=== PATIENT | male | born 1995 | race Caucasian/White ===

== ENCOUNTER 2019-08-26 14:43 | Emergency (ER) | payer OTHER ==
[2019-08-26 15:00] VITALS: BP 119/71
[2019-08-26 16:03] LABS: Influenza B Molecular POSITIVE (Negative)
--- NOTE | 2019-08-26 16:05 | ED ---
Respiratory - HPI Summary HPI Summary: 24 yr old male with the complaint of coughing, onset of symptoms five days ago. He initially had runny nose, muscle aches and then coughing and fever. He feels tired as well. His symptoms now are moderate. No SOB. - History of Current Complaint Chief Complaint: UCRespiratory Stated Complaint: CHEST CONGESTION Time Seen by Provider: 08/26/19 15:45 Pain Intensity: 0 - Allergy/Home Medications Allergies/Adverse Reactions: Allergies Allergy/AdvReac Type Severity Reaction Status Date / Time No Known Allergies Allergy Verified 08/26/19 14:53 Home Medications: Home Medications Antidepressant Med 1 tab DAILY 08/26/19 [History Confirmed 08/26/19] PMH/Surg Hx/FS Hx/Imm Hx - Surgical History Surgery Procedure, Year, and Place: LEFT ankle-screws placed 2012 Infectious Disease History: No Infectious Disease History: Denies: Traveled Outside the [place] in Last 30 Days - Family History Known Family History: Positive: None - Social History Alcohol Use: Weekly Substance Use Type: Reports: None Smoking Status (MU): Heavy Every Day Tobacco Smoker Type: eCigarettes Amount Used/How Often: once a week e-cigs Review of Systems Constitutional: Negative Positive: Cough Positive: Myalgia All Other Systems Reviewed And Are Negative: Yes Physical Exam Triage Information Reviewed: Yes Vital Signs On Initial Exam: Initial Vitals Temp Pulse Resp BP Pulse Ox 97.7 F 89 16 119/71 97 08/26/19 14:55 08/26/19 14:55 08/26/19 14:55 08/26/19 14:55 08/26/19 14:55 Vital Signs Reviewed: Yes Appearance: Positive: Well-Appearing, No Pain Distress Skin: Positive: Warm, Skin Color Reflects Adequate Perfusion Head/Face: Positive: Normal Head/Face Inspection Eyes: Positive: EOMI ENT: Positive: Normal ENT inspection, Nasal congestion, Nasal drainage Neck: Positive: Nontender Respiratory/Lung Sounds: Positive: Clear to Auscultation, Breath Sounds Present Cardiovascular: Positive: RRR. Negative: Murmur Abdomen Description: Positive: Nontender. Negative: Distended Musculoskeletal: Positive: Strength/ROM Intact Neurological: Positive: Sensory/Motor Intact, Alert, Oriented to Person Place, Time, CN Intact II-III, Normal Gait, Speech Normal Psychiatric: Positive: Normal Diagnostics - Vital Signs Vital Signs Temp Pulse Resp BP Pulse Ox 08/26/19 14:55 97.7 F 89 16 119/71 97 - Laboratory Lab Statement: Any lab studies that have been ordered have been reviewed, and results considered in the medical decision making process. Disposition - Course Course Of Treatment: 24 yr old with influenza B with five days of symptoms. DC home. - Diagnoses Provider Diagnoses: Influenza B Discharge ED - Sign-Out/Discharge Documenting (check all that apply): Patient Departure All imaging exams completed and their final reports reviewed: No Studies - Discharge Plan Condition: Good Disposition: HOME Patient Education Materials: Influenza (ED) Forms: *Work Release Referrals: No Primary Care Phys,NOPCP [Primary Care Provider] - [facility] [place] [facility] [Outside] - 2 Days - Billing Disposition and Condition Condition: GOOD Disposition: Home
== END 2019-08-26 16:14 | disposition home or self-care (01) ==
LOC: UCCORT 14:43
DX: J11.1 Influenza due to unidentified influenza virus with other respiratory manifestations (principal); F17.290 Nicotine dependence, other tobacco product, uncomplicated
CPT/HCPCS: 99201; G0463

== ENCOUNTER 2019-10-13 14:14 | Emergency (ER) | payer SELFPAY ==
[2019-10-13 15:17] VITALS: BP 113/58
[2019-10-13] MEDS ORDERED: Lidocaine 1% MPF ** 5 ML VIAL IM ONE (16:16)
[2019-10-13] MEDS ORDERED: cefTRIAXone VIAL(*) 250 MG VIAL IM ONE (16:16)
[2019-10-13] MEDS ORDERED: Azithromycin TAB* 250 MG PO ONE (16:17)
--- NOTE | 2019-10-13 16:19 | UC ---
Complaint Male HPI - HPI Summary HPI Summary: has had burning with urination for 2 weeks last unprotectred sexual encouter was 11 days ago--patient is concerned about std---- - History of Current Complaint Chief Complaint: UCGU Stated Complaint: PERSONAL Time Seen by Provider: 10/13/19 16:02 Hx Obtained From: Patient Onset/Duration: Gradual Onset, Lasting Days - 2 weeks, Still Present Timing: Constant Pain Intensity: 1 Pain Scale Used: 0-10 Numeric Location: Penis Character: Burning Aggravating Factor(s): Voiding Alleviating Factor(s): Nothing Associated Signs And Symptoms: Positive: Negative - Allergies/Home Medications Allergies/Adverse Reactions: Allergies Allergy/AdvReac Type Severity Reaction Status Date / Time No Known Allergies Allergy Verified 10/13/19 15:17 Home Medications: Home Medications Fluoxetine HCl [Prozac] 40 mg PO DAILY 10/13/19 [History Confirmed 10/13/19] PMH/Surg Hx/FS Hx/Imm Hx Previously Healthy: Yes Psychological History: Depression - Surgical History Surgical History: Yes Surgery Procedure, Year, and Place: LEFT ankle-screws placed 2012 - Family History Known Family History: Positive: None - Social History Occupation: Employed Full-time Lives: Dormitory/Roommates Alcohol Use: Weekly Substance Use Type: Marijuana Substance Use Comment - Amount & Last Used: once a month Smoking Status (MU): Former Smoker Type: eCigarettes Amount Used/How Often: once a week e-cigs Review of Systems All Other Systems Reviewed And Are Negative: Yes Constitutional: Positive: Negative Skin: Positive: Negative Eyes: Positive: Negative ENT: Positive: Negative Respiratory: Positive: Negative Cardiovascular: Positive: Negative Gastrointestinal: Positive: Negative Genitourinary: Positive: Dysuria Motor: Positive: Negative Neurovascular: Positive: Negative Musculoskeletal: Positive: Negative Neurological/Mental Status: Positive: Negative Psychological: Positive: Negative Is Patient Immunocompromised?: No Physical Exam Triage Information Reviewed: Yes Appearance: Well-Appearing, No Pain Distress, Well-Nourished Vital Signs: Initial Vital Signs Temp 97.8 F 10/13/19 15:11 Pulse 63 10/13/19 15:11 Resp 18 10/13/19 15:11 BP 113/58 10/13/19 15:11 Pulse Ox 98 10/13/19 15:11 Vital Signs Reviewed: Yes Eye Exam: Normal Eyes: Positive: Conjunctiva Clear ENT Exam: Normal ENT: Positive: Normal ENT inspection, Hearing grossly normal. Negative: Trismus , Muffled voice, Hoarse voice Dental Exam: Normal Neck exam: Normal Neck: Positive: Supple, Nontender Respiratory Exam: Normal Respiratory: Positive: Chest non-tender, No respiratory distress, No accessory muscle use Cardiovascular Exam: Normal Cardiovascular: Positive: RRR, Brisk Capillary Refill Abdomen Description: Negative: CVA Tenderness (R), CVA Tenderness (L) Musculoskeletal Exam: Normal Musculoskeletal: Positive: Strength Intact, ROM Intact, No Edema Neurological Exam: Normal Neurological: Positive: Alert, Muscle Tone Normal Psychological Exam: Normal Skin Exam: Normal Complaint Male Course/Dx - Course Course Of Treatment: discussed treatment options with patient will do the screening and also treat for STD today offered additional testing for std (RPR HEP HIV--patient refused) - Differential Dx/Diagnosis Provider Diagnosis: At risk for sexually transmitted disease due to unprotected sex, Dysuria Discharge ED - Sign-Out/Discharge Documenting (check all that apply): Patient Departure All imaging exams completed and their final reports reviewed: No Studies - Discharge Plan Condition: Stable Disposition: HOME Patient Education Materials: Sexually Transmitted Diseases (ED) Referrals: [facility] [Outside] - 2 Weeks - Billing Disposition and Condition Condition: STABLE Disposition: Home - Attestation Statements Provider Attestation: This patient was not seen by me. I was available for consult. Chart reviewed. VAZQUEZ
[2019-10-15 13:09] LABS: Chlamydia trachomatis NAA Negative (Negative); Neisseria gonorrhoeae (GC) NAA Negative (Negative)
[2019-10-15 19:56] LABS: Trichomonas vag Misc RNA Male Negative (Negative); Trichomonas vaginalis SOURCE: Urine (Male Patient)
== END 2019-10-13 16:40 | disposition home or self-care (01) ==
LOC: UCCORT 14:14
DX: Z20.2 Contact with and (suspected) exposure to infections with a predominantly sexual mode of transmission (principal); R30.0 Dysuria; F32.9 Major depressive disorder, single episode, unspecified; Z79.899 Other long term (current) drug therapy; Z87.891 Personal history of nicotine dependence
CPT/HCPCS: 87491; 87591; 87661; 96372; 99212; A9270-GY; G0463; J0696

== ENCOUNTER 2019-10-24 16:11 | Emergency (ER) | payer SELFPAY ==
[2019-10-24 16:26] VITALS: BP 121/64
[2019-10-24] MEDS ORDERED: Ondansetron ODT TAB* 4 MG SL ONE (16:35)
--- NOTE | 2019-10-24 16:54 | UC ---
FLU HPI - HPI Summary HPI Summary: 24yo male presenting with diarrhea, generalized abdominal pain, nausea, and body aches since this morning. Notes 4 episodes of diarrhea, no blood in the stool. Denies vomiting. States abdominal pain is improving but "still very sore. " Denies fever and chills. States he ate two [employer] cheeseburgers last night and unsure if that is what caused this. Had cereal this morning and has been drinking water throughout the day. States he is "not really worried about it but cant go to work like this and needs a note." - History of Current Complaint Chief Complaint: UCGI Stated Complaint: ABD PAIN, HEADACHE, NAUSEA, DIARRHEA Hx Obtained From: Patient Pain Intensity: 5 Pain Scale Used: 0-10 Numeric - Allergy/Home Medications Allergies/Adverse Reactions: Allergies Allergy/AdvReac Type Severity Reaction Status Date / Time No Known Allergies Allergy Verified 10/24/19 16:25 Home Medications: Home Medications Fluoxetine HCl [Prozac] 40 mg PO DAILY 10/13/19 [History Confirmed 10/24/19] Ibuprofen TAB* [Advil TAB*] 200 mg PO ONCE 10/24/19 [History Confirmed 10/24/19] Ondansetron TAB* [Zofran 4 MG Tab*] 4 mg PO Q6H PRN #16 tab 10/24/19 [Rx] PMH/Surg Hx/FS Hx/Imm Hx Previously Healthy: Yes - Surgical History Surgical History: Yes Surgery Procedure, Year, and Place: LEFT ankle-screws placed 2012 - Family History Known Family History: Positive: None, Non-Contributory - Social History Alcohol Use: Occasionally Substance Use Type: None Substance Use Comment - Amount & Last Used: once a month Smoking Status (MU): Former Smoker Type: eCigarettes Amount Used/How Often: once a week e-cigs Review of Systems All Other Systems Reviewed And Are Negative: Yes Constitutional: Positive: Negative ENT: Positive: Negative Respiratory: Positive: Negative Cardiovascular: Positive: Negative Gastrointestinal: Positive: Diarrhea - x4, Nausea. Negative: Abdominal Pain, Vomiting Genitourinary: Positive: Negative Musculoskeletal: Positive: Myalgia Neurological/Mental Status: Positive: Negative Physical Exam - Summary Physical Exam Summary: Vital Signs Reviewed: Yes A+Ox3, no distress, well-appearing Eyes: Conjunctiva Clear ENT: Hearing grossly normal, TM x 2 clear, moist, uvula midline, no exudate, no erythema Neck: Positive: Supple Respiratory: Positive: No respiratory distress, No accessory muscle use + CTA throughout no w/r Cardiovascular: RRR nl s1, s2 no m/r Abd: soft, + BSx4 hyperactive, nt/nd no guarding Musculoskeletal Exam: HANSEN x 4 without difficulty Neurological: Positive: Alert Psychological: Positive: age appropriate behavior Skin: Positive: no rash, no ecchymosis Vital Signs: Initial Vital Signs Temp 98.1 F 10/24/19 16:24 Pulse 90 10/24/19 16:24 Resp 16 10/24/19 16:24 BP 121/64 10/24/19 16:24 Pulse Ox 100 10/24/19 16:24 Lab Results 10/24/19 10/24/19 Range/Units 16:42 16:45 POC Urine Color Yellow POC Urine Clarity Clear POC Urine pH 6.5 (5-9) POC Ur Specif [place] 1.020 (1.010-1.030) POC Urine Protein Negative (Negative) POC Ur Glucose (UA) Negative (Negative) POC Urine Ketones Negative (Negative) POC Urine Blood Negative (Negative) POC Urine Nitrite Negative (Negative) POC Urine Bilirubin Negative (Negative) POC Urine Urobilinogen 0.2 (Negative) POC U Leukocyte Esteras Negative (Negative) Influenza A (Rapid) Negative (Negative) Influenza B (Rapid) Negative (Negative) Flu Course/Dx - Course Course Of Treatment: UA and flu negative. Educated on acute diarrhea and symptomatic treatment. Patient also received zofran here and voiced feeling "much better." I provided him with prescription for zofran and note to excuse from work. Instructed to go to ED with any new or worsening symptoms. Patient voiced understanding and agreed with treatment plan. - Differential Dx/Diagnosis Provider Diagnosis: Acute diarrhea, Nausea Discharge ED - Sign-Out/Discharge Documenting (check all that apply): Patient Departure All imaging exams completed and their final reports reviewed: No Studies - Discharge Plan Condition: Stable Disposition: HOME Prescriptions: Ondansetron TAB* [Zofran 4 MG Tab*] 4 mg PO Q6H PRN #16 tab PRN Reason: Nausea/Vomiting Patient Education Materials: Acute Diarrhea (ED), Abdominal Pain (ED) Forms: *Work Release Referrals: Jose Luis Lopez MD [Primary Care Provider] - If Needed Additional Instructions: Take the zofran as prescribed for your nausea and vomiting. Get plenty of rest and increase your fluid intake. Eat a bland diet, such as bread, bananas, and rice while symptoms are present. Go to the emergency room if your symptoms do not resolve or you develop fever, excessive diarrhea/vomiting, severe abdominal pain, or are unable to keep fluids down. - Billing Disposition and Condition Condition: STABLE Disposition: Home - Attestation Statements Provider Attestation: Per institutional requirements, I have reviewed the chart, however, I was not consulted specifically or made aware of this patient by the midlevel provider. I did not personally evaluate, interact with, or disposition this patient. EK
[2019-10-24 16:55] LABS: Influenza A Molecular Negative (Negative); Influenza B Molecular Negative (Negative)
== END 2019-10-24 17:19 | disposition home or self-care (01) ==
LOC: UCCORT 16:11
DX: R19.7 Diarrhea, unspecified (principal); R11.0 Nausea; R10.84 Generalized abdominal pain; R52 Pain, unspecified; R51 Headache; Z87.891 Personal history of nicotine dependence
CPT/HCPCS: 81003; 99212; A9270-GY; G0463

== ENCOUNTER 2019-11-12 09:13 | Emergency (ER) | payer OTHER ==
[2019-11-12 09:27] VITALS: BP 116/54
--- NOTE | 2019-11-12 09:50 | UC ---
Respiratory Complaint HPI - HPI Summary HPI Summary: cough x 3 days cough is dry , worse with deep breathing / better with rest, sore throat, pnd, nasal congestion , fever, chills body aches no recent travels mild nausea, - History of Current Complaint Chief Complaint: UCGeneralIllness Stated Complaint: COUGH,VOMITTING,RUNNY NOSE Time Seen by Provider: 11/12/19 09:40 Hx Obtained From: Patient Onset/Duration: Gradual Onset, Lasting Days - 3, Still Present Timing: Constant Severity Initially: Moderate Severity Currently: Moderate Pain Intensity: 6 Character: Cough: Productive Aggravating Factors: Exertion, Deep Breaths Alleviating Factors: Nothing Associated Signs And Symptoms: Positive: Fever, Chills, URI, Nasal Congestion. Negative: Dyspnea, Dizziness, Calf Pain, Calf Swelling - Allergies/Home Medications Allergies/Adverse Reactions: Allergies Allergy/AdvReac Type Severity Reaction Status Date / Time No Known Allergies Allergy Verified 11/12/19 09:27 Home Medications: Home Medications Ibuprofen TAB* [Advil TAB*] 200 mg PO ONCE PRN 10/24/19 [History Confirmed 11/11] guaiFENesin [Mucinex] 600 mg PO ONCE PRN 11/12/19 [History Confirmed 11/12/19] PMH/Surg Hx/FS Hx/Imm Hx Previously Healthy: Yes - Surgical History Surgical History: Yes Surgery Procedure, Year, and Place: LEFT ankle-screws placed 2012 - Family History Known Family History: Positive: None, Non-Contributory Negative: Diabetes - Social History Alcohol Use: Occasionally Substance Use Type: None Substance Use Comment - Amount & Last Used: once a month Smoking Status (MU): Current Some Day Smoker Type: eCigarettes Amount Used/How Often: once a week e-cigs Review of Systems All Other Systems Reviewed And Are Negative: Yes Constitutional: Positive: Fever, Chills, Fatigue Skin: Positive: Negative Eyes: Positive: Negative ENT: Positive: Sore Throat, Nasal Discharge Respiratory: Positive: Cough Cardiovascular: Positive: Negative Is Patient Immunocompromised?: No Physical Exam Triage Information Reviewed: Yes Appearance: Well-Appearing, No Pain Distress, Well-Nourished Vital Signs: Initial Vital Signs Temp 98.3 F 11/12/19 09:23 Pulse 95 11/12/19 09:23 Resp 17 11/12/19 09:23 BP 116/54 11/12/19 09:23 Pulse Ox 98 11/12/19 09:23 Vital Signs Reviewed: Yes Eye Exam: Normal Eyes: Positive: Conjunctiva Clear ENT: Positive: Normal ENT inspection, Hearing grossly normal, Pharynx normal, Pharyngeal erythema Neck: Positive: Supple, Nontender, No Lymphadenopathy Respiratory: Positive: Chest non-tender, Lungs clear, Normal breath sounds Cardiovascular: Positive: RRR, No Murmur, Pulses Normal Respiratory Course/Dx - Differential Dx/Diagnosis Provider Diagnosis: Viral illness Discharge ED - Sign-Out/Discharge Documenting (check all that apply): Patient Departure All imaging exams completed and their final reports reviewed: No Studies - Discharge Plan Condition: Stable Disposition: HOME Patient Education Materials: Viral Syndrome (ED) Referrals: Jose Luis Lopez MD [Primary Care Provider] - If Needed Additional Instructions: viral illness, ? flu cont. with symptomatic treatment - Billing Disposition and Condition Condition: STABLE Disposition: Home
== END 2019-11-12 09:49 | disposition home or self-care (01) ==
LOC: UCCORT 09:13
DX: B34.9 Viral infection, unspecified (principal); R05 Cough; J02.9 Acute pharyngitis, unspecified; R09.82 Postnasal drip; R09.81 Nasal congestion; R68.83 Chills (without fever); R52 Pain, unspecified; R11.0 Nausea; F17.290 Nicotine dependence, other tobacco product, uncomplicated; R53.83 Other fatigue; R09.89 Other specified symptoms and signs involving the circulatory and respiratory systems
CPT/HCPCS: 99211; G0463

== ENCOUNTER 2019-12-19 10:44 | Emergency (ER) | payer OTHER ==
[2019-12-19 10:52] VITALS: BP 114/71
--- NOTE | 2019-12-19 10:54 | UC ---
UC General HPI - HPI Summary HPI Summary: Patient here for suture removal Had stitches placed on palm on 12/05 when he fell at his house - tripped over gym equipment and screw cut into his right hand. 10 sutures were placed 13 days ago here at urgent care States they have been starting to become very itchy. Otherwise healing well. Using neosporin. Hasn't been doing really anything so has not kept it covered. Wondering if he can start typing Meds; reviewed SEnstation and strength intact - History of Current Complaint Chief Complaint: UCLaceration Stated Complaint: REMOVE STITCHES R HAND Time Seen by Provider: 12/19/19 10:47 Pain Intensity: 0 - Allergy/Home Medications Allergies/Adverse Reactions: Allergies Allergy/AdvReac Type Severity Reaction Status Date / Time No Known Allergies Allergy Verified 12/19/19 10:52 Home Medications: Home Medications FLUoxetine CAP* [PROzac CAP*] 40 mg PO DAILY 12/06/19 [History Confirmed ] Mupirocin 2% OINT* [Bactroban 2 % Oint*] 1 applic TOPICAL BID #1 tube 12/19/19 [ Rx] PMH/Surg Hx/FS Hx/Imm Hx Previously Healthy: Yes - Surgical History Surgical History: Yes Surgery Procedure, Year, and Place: LEFT ankle-screws placed 2012 - Family History Known Family History: Positive: None, Non-Contributory Negative: Diabetes, Blood Disorder - Social History Alcohol Use: Occasionally Substance Use Type: Marijuana Substance Use Comment - Amount & Last Used: ocasionally, used today Smoking Status (MU): Current Some Day Smoker Type: eCigarettes Amount Used/How Often: once a week e-cigs - Immunization History Most Recent Tetanus Shot: 2013 Review of Systems All Other Systems Reviewed And Are Negative: Yes Physical Exam Triage Information Reviewed: Yes Appearance: Well-Appearing Vital Signs: Initial Vital Signs Temp 97.8 F 12/19/19 10:50 Pulse 76 12/19/19 10:50 Resp 15 12/19/19 10:50 BP 114/71 12/19/19 10:50 Pulse Ox 99 12/19/19 10:50 Vital Signs Reviewed: Yes Eyes: Positive: Conjunctiva Clear Musculoskeletal: Positive: Other: - good cap refill of right hand - good radial and ulnar pulses, sensation and strenth intact Skin: Positive: Other - right plamar surface of hand 10 sutures intact - area clean and dry. No significant erythema. NO fluctuance or induration. v shaped laceration. right side of laceration is not well approximated but dried callloused skin has formed. Course/Dx - Course Course Of Treatment: This is a 24 yr old with 10 sutures in right palm day 13 of sutures Right side of vshape laceration - not well approximated and suspect keeping in sutures longer would not make a difference as tissue appears nearly calloused and scabbed over 10 sutures removed without any complications Applied steristrips and tegaderm over laceration to continue healing by secondary intention No signs of infection Plan Suture removal today Continue with steri strips on the right side of laceration Keep tegaderm or bandage over steristrips to keep protected Would apply mupricin BID once steri strips have come off - if steristrips come off - apply mupiricin and apply steristrips until laceration has closed Keep area clean and dry and covered when in use. Discontinue neosporin If area becomes more red, swollen or painful, seek immediate attention at PCP or return to urgent care - Diagnoses Provider Diagnosis: Encounter for removal of sutures Discharge ED - Sign-Out/Discharge Documenting (check all that apply): Patient Departure All imaging exams completed and their final reports reviewed: No Studies - Discharge Plan Condition: Good Disposition: HOME Prescriptions: Mupirocin 2% OINT* [Bactroban 2 % Oint*] 1 applic TOPICAL BID #1 tube Referrals: Jose Luis Lopze MD [Primary Care Provider] - Additional Instructions: Suture removal today Continue with steri strips on the right side of laceration Keep tegaderm or bandage over steristrips to keep protected Would apply mupricin BID once steri strips have come off - if steristrips come off - apply mupiricin and apply steristrips until laceration has closed Keep area clean and dry and covered when in use. Discontinue neosporin If area becomes more red, swollen or painful, seek immediate attention at PCP or return to urgent care - Billing Disposition and Condition Condition: GOOD Disposition: Home
== END 2019-12-19 11:10 | disposition home or self-care (01) ==
LOC: UCCORT 10:44
DX: S61.411D Laceration without foreign body of right hand, subsequent encounter (principal); W26.9XXD Contact with unspecified sharp object(s), subsequent encounter; Z72.0 Tobacco use
CPT/HCPCS: 99212; G0463